=== PATIENT | female | born 1945 | race Caucasian/White ===

== ENCOUNTER 2022-03-26 06:35 | Inpatient (IN) ==
[2022-03-26] MEDS ORDERED: Ringers Solution, Lactated 1,000 ML IVC SCH (06:45)
[2022-03-26] MEDS ORDERED: CeFAZolin Syr 2,000MG/20 ML 2,000 MG/20 ML SYRINGE IVPB ONE (07:00)
[2022-03-26] MEDS ORDERED: *HR* Propofol 200 MG/20 ML VIAL IVP ONE (07:07)
[2022-03-26] MEDS ORDERED: *HR* FentaNYL (PF) 100 MCG/2 ML VIAL ONE (07:07)
[2022-03-26] MEDS ORDERED: Lidocaine HCL 4 ML Topical Solution (Laryng-O-Jet Kit Sterile Pak) TP ONE (07:08)
[2022-03-26] MEDS ORDERED: Ondansetron 4 MG/2 ML VIAL ONE (07:08)
[2022-03-26] MEDS ORDERED: Lidocaine -MPF 2% 2 ML VIAL ONE (07:08)
[2022-03-26] MEDS ORDERED: *HR* Rocuronium Bromide 50 MG/5 ML VIAL ONE (07:08)
[2022-03-26] MEDS ORDERED: *HR* OxyCODONE Immed Rel 5 MG TABLET PO PRN (07:35)
[2022-03-26] MEDS ORDERED: *HR* HYDROmorphone 2 MG TABLET PO PRN (07:35)
[2022-03-26] MEDS ORDERED: Famotidine 20 MG/2 ML VIAL IVP ONE (07:35)
[2022-03-26] MEDS ORDERED: Acetaminophen IV 1,000 MG/100 ML BAG IVPB ONE (07:35)
[2022-03-26] MEDS ORDERED: *HR* Labetalol 20 MG/4 ML SYRINGE IVP PRN (07:35)
[2022-03-26] MEDS ORDERED: Promethazine 6.25 MG in Water for inj. (sterile) 20 ML IVPB PRN (07:35)
[2022-03-26] MEDS ORDERED: Ondansetron 4 MG/2 ML VIAL IVP PRN ×2 (07:35→12:24)
[2022-03-26] MEDS ORDERED: *HR* HYDROmorphone (PF) 1 MG/ML SYRINGE IVP PRN (07:35)
[2022-03-26] MEDS ORDERED: Ketorolac 30 MG/ML VIAL IVP PRN (07:35)
[2022-03-26] MEDS ORDERED: *HR* Phenylephrine 10 MG/ML VIAL ONE (07:36)
[2022-03-26] MEDS ORDERED: *HR* Midazolam HCl 2 MG/2 ML VIAL ONE (08:10)
[2022-03-26] MEDS ORDERED: Sugammadex Sodium 200 MG/2 ML VIAL IV ONE (09:36)
[2022-03-26] MEDS ORDERED: *HR* HYDROMORPHONE 2 MG/ML VIAL ONE (09:52)
[2022-03-26] MEDS ORDERED: Albuterol 2.5 MG/3 ML NEBULIZER IH ONE (11:33)
[2022-03-26] MEDS ORDERED: Naloxone 0.4 MG/ML INJ IVP PRN (12:24)
[2022-03-26] MEDS: 0.9 % Sodium Chloride 1,000 ML IVC SCH (12:50)
[2022-03-26] MEDS: Ketorolac 30 MG/ML VIAL IVP SCH ×3 (12:52→23:13)
[2022-03-26] MEDS: Ipratropium/Albuterol Neb 3 ML IH SCH ×4 (13:29→23:34)
[2022-03-26] MEDS: *HR* HYDROcodone/Acet 5/325 mg TABLET PO PRN (14:46)
[2022-03-26] MEDS: *HR* Heparin 5,000 UNIT/ML VIAL SQ SCH ×2 (14:46→21:27)
[2022-03-26] MEDS: Gabapentin 300 MG CAPSULE PO SCH ×2 (14:47→21:27)
[2022-03-26] MEDS: *HR* Acetylcysteine 20% 600 MG/3 ML ORAL SYRINGE PO SCH ×2 (17:33→21:27)
[2022-03-26] MEDS: Famotidine 20 MG TABLET PO SCH (21:27)
[2022-03-26] MEDS: Sennosides/Docusate Sodium TABLET PO SCH (21:27)
[2022-03-26] MEDS: ALPRAZolam 0.5 MG TABLET PO SCH (21:27)
[2022-03-27] MEDS: 0.9 % Sodium Chloride 1,000 ML IVC SCH (00:20)
[2022-03-27 01:43] LABS: Hematocrit 32.7 % (35.3-44.9); Hemoglobin 10.6 g/dL (11.5-15.4); Mean Corpuscular HGB Conc 32.4 g/dL (31.6-35.5); Mean Corpuscular Hemoglobin 30.1 pg (28.0-33.3); Mean Corpuscular Volume 92.9 fL (83.0-100.0); Mean Platelet Volume 11.3 fL (9.4-12.4); Platelet Count 175 K/mcL (140-400); Red Blood Count 3.52 M/mcL (3.82-4.97); Red Cell Distribution Width 12.8 % (11.5-14.5); White Blood Count 6.8 K/mcL (4.3-11.1)
[2022-03-27 02:00] LABS: BUN/Creatinine Ratio 29 (6-26); Blood Urea Nitrogen 18 mg/dL (8-23); Calcium 8.8 mg/dL (8.6-10.3); Carbon Dioxide 24 mEq/L (23-29); Chloride 103 mEq/L (98-107); Glucose 125 mg/dL (70-105); Magnesium 1.8 mg/dL (1.6-2.6); Osmolality,Calculated 285 (280-300); Potassium 3.7 mEq/L (3.5-5.1); Sodium 136 mEq/L (136-145); eGFR For African Americans > 60 (> 60); eGFR For Non-African Americans > 60 (> 60)
[2022-03-27] MEDS: Ipratropium/Albuterol Neb 3 ML IH SCH ×6 (03:44→23:52)
[2022-03-27] MEDS: *HR* Heparin 5,000 UNIT/ML VIAL SQ SCH ×3 (05:26→21:10)
[2022-03-27] MEDS: Ketorolac 30 MG/ML VIAL IVP SCH ×3 (05:26→18:46)
[2022-03-27] MEDS: *HR* Acetylcysteine 20% 600 MG/3 ML ORAL SYRINGE PO SCH ×3 (09:23→21:31)
[2022-03-27] MEDS: Gabapentin 300 MG CAPSULE PO SCH ×3 (09:23→21:10)
[2022-03-27] MEDS: hydroCHLOROthiazide 25 MG TABLET PO SCH (09:23)
[2022-03-27] MEDS: Famotidine 20 MG TABLET PO SCH ×2 (09:23→21:10)
[2022-03-27] MEDS: Sennosides/Docusate Sodium TABLET PO SCH ×2 (09:23→21:10)
[2022-03-27] MEDS ORDERED: Furosemide 20 MG/2 ML VIAL IVP ONE (13:25)
[2022-03-27] MEDS: Budesonide/Formoterol 160/4.5 1 PUFF INH IH SCH ×2 (15:20→20:35)
[2022-03-27] MEDS: ALPRAZolam 0.5 MG TABLET PO SCH (21:10)
[2022-03-27] MEDS: *HR* HYDROcodone/Acet 5/325 mg TABLET PO PRN (21:10)
[2022-03-28] MEDS: Ketorolac 30 MG/ML VIAL IVP SCH ×5 (00:11→23:51)
[2022-03-28 03:31] LABS: BUN/Creatinine Ratio 31 (6-26); Blood Urea Nitrogen 21 mg/dL (8-23); Calcium 8.8 mg/dL (8.6-10.3); Carbon Dioxide 29 mEq/L (23-29); Chloride 102 mEq/L (98-107); Glucose 113 mg/dL (70-105); Osmolality,Calculated 290 (280-300); Potassium 3.5 mEq/L (3.5-5.1); Sodium 138 mEq/L (136-145); eGFR For African Americans > 60 (> 60); eGFR For Non-African Americans > 60 (> 60)
[2022-03-28] MEDS: Ipratropium/Albuterol Neb 3 ML IH SCH ×6 (04:12→23:32)
[2022-03-28] MEDS: *HR* Heparin 5,000 UNIT/ML VIAL SQ SCH ×3 (05:34→21:23)
[2022-03-28] MEDS: Budesonide/Formoterol 160/4.5 1 PUFF INH IH SCH ×3 (07:33→20:05)
[2022-03-28] MEDS: Famotidine 20 MG TABLET PO SCH ×2 (09:20→21:22)
[2022-03-28] MEDS: hydroCHLOROthiazide 25 MG TABLET PO SCH (09:20)
[2022-03-28] MEDS: *HR* Acetylcysteine 20% 600 MG/3 ML ORAL SYRINGE PO SCH ×3 (09:20→21:24)
[2022-03-28] MEDS: Gabapentin 300 MG CAPSULE PO SCH ×3 (09:20→23:51)
[2022-03-28] MEDS: Sennosides/Docusate Sodium TABLET PO SCH ×2 (09:21→21:22)
[2022-03-28] MEDS ORDERED: methylPREDNISolone 125 MG/2 ML VIAL IVP ONE (12:17)
[2022-03-28] MEDS ORDERED: Furosemide 40 MG/4 ML VIAL IVP ONE (12:17)
[2022-03-28] MEDS ORDERED: Perflutren Lipid Microsphere 1.3 ML in 0.9 % Sodium Chloride 8.7 ML IVP PRN (18:04)
[2022-03-28] MEDS: ALPRAZolam 0.5 MG TABLET PO SCH (21:22)
[2022-03-29 01:33] LABS: Hematocrit 33.4 % (35.3-44.9); Immature Granulocytes % 0.4 % (0-4); Lymphocytes # 0.5 K/mcL (0.6-4.6); Lymphocytes % 10.3 %; Mean Corpuscular HGB Conc 32.9 g/dL (31.6-35.5); Mean Corpuscular Hemoglobin 29.6 pg (28.0-33.3); Mean Platelet Volume 11.2 fL (9.4-12.4); Monocytes # 0.3 K/mcL (0.0-1.3); Monocytes % 4.8 %; Neutrophils # 4.4 K/mcL (1.6-8.9); Platelet Count 201 K/mcL (140-400); Red Blood Count 3.71 M/mcL (3.82-4.97); Red Cell Distribution Width 12.8 % (11.5-14.5); Segmented Neutrophils % 84.5 %; White Blood Count 5.2 K/mcL (4.3-11.1)
[2022-03-29 01:55] LABS: BUN/Creatinine Ratio 26 (6-26); Blood Urea Nitrogen 18 mg/dL (8-23); Calcium 9.3 mg/dL (8.6-10.3); Carbon Dioxide 30 mEq/L (23-29); Chloride 99 mEq/L (98-107); Glucose 154 mg/dL (70-105); Magnesium 2.1 mg/dL (1.6-2.6); Osmolality,Calculated 289 (280-300); Potassium 3.4 mEq/L (3.5-5.1); Sodium 137 mEq/L (136-145); eGFR For African Americans > 60 (> 60); eGFR For Non-African Americans > 60 (> 60)
[2022-03-29] MEDS: Ipratropium/Albuterol Neb 3 ML IH SCH ×6 (03:58→23:06)
[2022-03-29] MEDS: *HR* Heparin 5,000 UNIT/ML VIAL SQ SCH ×3 (05:40→22:39)
[2022-03-29] MEDS: Ketorolac 30 MG/ML VIAL IVP SCH ×3 (05:41→18:25)
[2022-03-29] MEDS: *HR* Acetylcysteine 20% 600 MG/3 ML ORAL SYRINGE PO SCH ×3 (07:43→22:39)
[2022-03-29] MEDS: Famotidine 20 MG TABLET PO SCH ×2 (07:44→22:39)
[2022-03-29] MEDS: Gabapentin 300 MG CAPSULE PO SCH ×3 (07:45→22:39)
[2022-03-29] MEDS: Sennosides/Docusate Sodium TABLET PO SCH ×2 (07:45→22:38)
[2022-03-29] MEDS: hydroCHLOROthiazide 25 MG TABLET PO SCH (07:45)
[2022-03-29] MEDS: Budesonide/Formoterol 160/4.5 1 PUFF INH IH SCH (08:46)
[2022-03-29] MEDS ORDERED: Furosemide 40 MG/4 ML VIAL IVP ONE (10:26)
[2022-03-29] MEDS: ALPRAZolam 0.5 MG TABLET PO SCH (22:39)
[2022-03-30] MEDS: Ketorolac 30 MG/ML VIAL IVP SCH ×2 (00:36→05:43)
[2022-03-30 04:00] LABS: Basophils % 0.4 %; Eosinophils # 0.4 K/mcL (0.0-0.6); Eosinophils % 6.1 %; Hematocrit 33.1 % (35.3-44.9); Hemoglobin 10.9 g/dL (11.5-15.4); Immature Granulocytes % 0.1 % (0-4); Lymphocytes # 1.6 K/mcL (0.6-4.6); Lymphocytes % 23.2 %; Mean Corpuscular HGB Conc 32.9 g/dL (31.6-35.5); Mean Corpuscular Volume 91.2 fL (83.0-100.0); Mean Platelet Volume 11.4 fL (9.4-12.4); Monocytes # 0.6 K/mcL (0.0-1.3); Neutrophils # 4.2 K/mcL (1.6-8.9); Platelet Count 244 K/mcL (140-400); Red Blood Count 3.63 M/mcL (3.82-4.97); Red Cell Distribution Width 13.1 % (11.5-14.5); Segmented Neutrophils % 61.2 %; White Blood Count 6.9 K/mcL (4.3-11.1)
[2022-03-30] MEDS: Ipratropium/Albuterol Neb 3 ML IH SCH ×5 (04:09→20:16)
[2022-03-30 04:26] LABS: BUN/Creatinine Ratio 38 (6-26); Blood Urea Nitrogen 30 mg/dL (8-23); Calcium 9.5 mg/dL (8.6-10.3); Carbon Dioxide 32 mEq/L (23-29); Chloride 100 mEq/L (98-107); Glucose 103 mg/dL (70-105); Magnesium 2.2 mg/dL (1.6-2.6); Osmolality,Calculated 292 (280-300); Potassium 3.9 mEq/L (3.5-5.1); Sodium 138 mEq/L (136-145); eGFR For African Americans > 60 (> 60); eGFR For Non-African Americans > 60 (> 60)
[2022-03-30] MEDS: *HR* Heparin 5,000 UNIT/ML VIAL SQ SCH ×3 (05:43→22:54)
[2022-03-30] MEDS: hydroCHLOROthiazide 25 MG TABLET PO SCH (08:47)
[2022-03-30] MEDS: Gabapentin 300 MG CAPSULE PO SCH ×3 (08:48→20:25)
[2022-03-30] MEDS: Sennosides/Docusate Sodium TABLET PO SCH ×2 (08:48→20:25)
[2022-03-30] MEDS: Famotidine 20 MG TABLET PO SCH ×2 (08:48→20:25)
[2022-03-30] MEDS: *HR* Acetylcysteine 20% 600 MG/3 ML ORAL SYRINGE PO SCH ×3 (09:01→20:25)
[2022-03-30] MEDS: ALPRAZolam 0.5 MG TABLET PO SCH (20:25)
[2022-03-30] MEDS: Clindamycin 600 MG/50 ML 600 MG/50 ML IV.SOLN IVPB SCH (20:55)
[2022-03-31] MEDS: Ipratropium/Albuterol Neb 3 ML IH SCH ×7 (00:03→22:50)
[2022-03-31] MEDS: Clindamycin 600 MG/50 ML 600 MG/50 ML IV.SOLN IVPB SCH ×4 (02:55→21:39)
[2022-03-31 04:40] LABS: Hematocrit 34.4 % (35.3-44.9); Hemoglobin 11.1 g/dL (11.5-15.4); Mean Corpuscular HGB Conc 32.3 g/dL (31.6-35.5); Mean Corpuscular Hemoglobin 29.4 pg (28.0-33.3); Mean Platelet Volume 10.9 fL (9.4-12.4); Platelet Count 252 K/mcL (140-400); Red Blood Count 3.78 M/mcL (3.82-4.97); White Blood Count 7.1 K/mcL (4.3-11.1)
[2022-03-31 04:56] LABS: BUN/Creatinine Ratio 31 (6-26); Blood Urea Nitrogen 19 mg/dL (8-23); Calcium 9.3 mg/dL (8.6-10.3); Carbon Dioxide 30 mEq/L (23-29); Chloride 98 mEq/L (98-107); Glucose 108 mg/dL (70-105); Osmolality,Calculated 283 (280-300); Potassium 3.7 mEq/L (3.5-5.1); Sodium 135 mEq/L (136-145); eGFR For African Americans > 60 (> 60); eGFR For Non-African Americans > 60 (> 60)
[2022-03-31] MEDS: *HR* Heparin 5,000 UNIT/ML VIAL SQ SCH ×3 (05:32→21:39)
[2022-03-31] MEDS: Sennosides/Docusate Sodium TABLET PO SCH ×2 (08:42→21:36)
[2022-03-31] MEDS: *HR* Acetylcysteine 20% 600 MG/3 ML ORAL SYRINGE PO SCH ×3 (08:44→21:39)
[2022-03-31] MEDS: Famotidine 20 MG TABLET PO SCH ×2 (09:24→21:39)
[2022-03-31] MEDS: Gabapentin 300 MG CAPSULE PO SCH ×3 (10:23→21:39)
[2022-03-31] MEDS: hydroCHLOROthiazide 25 MG TABLET PO SCH (10:27)
[2022-03-31] MEDS ORDERED: Furosemide 40 MG/4 ML VIAL IVP SCH (11:45)
[2022-03-31] MEDS ORDERED: Clindamycin 600 MG/50 ML 600 MG/50 ML IV.SOLN IVPB SCH (21:00)
[2022-03-31] MEDS: ALPRAZolam 0.5 MG TABLET PO SCH (21:39)
[2022-04-01] MEDS: Clindamycin 600 MG/50 ML 600 MG/50 ML IV.SOLN IVPB SCH ×4 (03:10→22:23)
[2022-04-01 03:37] LABS: Hematocrit 34.9 % (35.3-44.9); Hemoglobin 11.4 g/dL (11.5-15.4); Mean Corpuscular HGB Conc 32.7 g/dL (31.6-35.5); Mean Corpuscular Volume 91.8 fL (83.0-100.0); Mean Platelet Volume 10.8 fL (9.4-12.4); Platelet Count 253 K/mcL (140-400); Red Cell Distribution Width 12.7 % (11.5-14.5); White Blood Count 5.9 K/mcL (4.3-11.1)
[2022-04-01] MEDS: Ipratropium/Albuterol Neb 3 ML IH SCH ×6 (03:58→23:05)
[2022-04-01 04:01] LABS: BUN/Creatinine Ratio 45 (6-26); Blood Urea Nitrogen 25 mg/dL (8-23); Calcium 9.5 mg/dL (8.6-10.3); Carbon Dioxide 29 mEq/L (23-29); Chloride 98 mEq/L (98-107); Glucose 97 mg/dL (70-105); Osmolality,Calculated 288 (280-300); Potassium 3.4 mEq/L (3.5-5.1); Sodium 137 mEq/L (136-145); eGFR For African Americans > 60 (> 60); eGFR For Non-African Americans > 60 (> 60)
[2022-04-01] MEDS: *HR* Heparin 5,000 UNIT/ML VIAL SQ SCH ×3 (05:39→22:24)
[2022-04-01] MEDS: Sennosides/Docusate Sodium TABLET PO SCH ×2 (09:06→22:23)
[2022-04-01] MEDS: Furosemide 20 MG/2 ML VIAL IVP SCH (09:07)
[2022-04-01] MEDS: Gabapentin 300 MG CAPSULE PO SCH ×3 (09:07→22:24)
[2022-04-01] MEDS: Famotidine 20 MG TABLET PO SCH ×2 (09:07→22:23)
[2022-04-01] MEDS: ALPRAZolam 0.5 MG TABLET PO SCH (22:23)
[2022-04-02] MEDS: Clindamycin 600 MG/50 ML 600 MG/50 ML IV.SOLN IVPB SCH (03:26)
[2022-04-02 03:56] LABS: Hematocrit 35.5 % (35.3-44.9); Hemoglobin 11.5 g/dL (11.5-15.4); Mean Corpuscular HGB Conc 32.4 g/dL (31.6-35.5); Mean Corpuscular Hemoglobin 30.2 pg (28.0-33.3); Mean Corpuscular Volume 93.2 fL (83.0-100.0); Mean Platelet Volume 11.4 fL (9.4-12.4); Platelet Count 282 K/mcL (140-400); Red Blood Count 3.81 M/mcL (3.82-4.97); Red Cell Distribution Width 12.6 % (11.5-14.5); White Blood Count 7.6 K/mcL (4.3-11.1)
[2022-04-02] MEDS: Ipratropium/Albuterol Neb 3 ML IH SCH ×6 (04:00→23:18)
[2022-04-02 04:13] LABS: BUN/Creatinine Ratio 49 (6-26); Blood Urea Nitrogen 30 mg/dL (8-23); Calcium 9.5 mg/dL (8.6-10.3); Carbon Dioxide 29 mEq/L (23-29); Chloride 100 mEq/L (98-107); Glucose 100 mg/dL (70-105); Osmolality,Calculated 288 (280-300); Potassium 4.2 mEq/L (3.5-5.1); Sodium 136 mEq/L (136-145); eGFR For African Americans > 60 (> 60); eGFR For Non-African Americans > 60 (> 60)
[2022-04-02] MEDS: *HR* Heparin 5,000 UNIT/ML VIAL SQ SCH ×3 (08:40→21:19)
[2022-04-02] MEDS: Gabapentin 300 MG CAPSULE PO SCH ×3 (08:41→21:10)
[2022-04-02] MEDS: Famotidine 20 MG TABLET PO SCH ×2 (08:41→21:10)
[2022-04-02] MEDS: Furosemide 20 MG/2 ML VIAL IVP SCH (08:41)
[2022-04-02] MEDS: Sennosides/Docusate Sodium TABLET PO SCH ×2 (08:42→21:10)
[2022-04-02] MEDS: ALPRAZolam 0.5 MG TABLET PO SCH (21:10)
[2022-04-03 02:05] LABS: Hematocrit 37.3 % (35.3-44.9); Hemoglobin 12.3 g/dL (11.5-15.4); Mean Corpuscular Hemoglobin 30.4 pg (28.0-33.3); Mean Corpuscular Volume 92.3 fL (83.0-100.0); Mean Platelet Volume 10.9 fL (9.4-12.4); Platelet Count 335 K/mcL (140-400); Red Blood Count 4.04 M/mcL (3.82-4.97); Red Cell Distribution Width 12.7 % (11.5-14.5); White Blood Count 7.8 K/mcL (4.3-11.1)
[2022-04-03 02:27] LABS: BUN/Creatinine Ratio 51 (6-26); Blood Urea Nitrogen 27 mg/dL (8-23); Calcium 9.6 mg/dL (8.6-10.3); Carbon Dioxide 27 mEq/L (23-29); Chloride 100 mEq/L (98-107); Glucose 109 mg/dL (70-105); Osmolality,Calculated 286 (280-300); Potassium 3.8 mEq/L (3.5-5.1); Sodium 135 mEq/L (136-145); eGFR For African Americans > 60 (> 60); eGFR For Non-African Americans > 60 (> 60)
[2022-04-03] MEDS: Ipratropium/Albuterol Neb 3 ML IH SCH ×5 (04:02→20:13)
[2022-04-03] MEDS: *HR* Heparin 5,000 UNIT/ML VIAL SQ SCH ×3 (06:43→20:55)
[2022-04-03] MEDS: Sennosides/Docusate Sodium TABLET PO SCH ×2 (08:37→20:55)
[2022-04-03] MEDS: Furosemide 20 MG/2 ML VIAL IVP SCH (08:38)
[2022-04-03] MEDS: Gabapentin 300 MG CAPSULE PO SCH ×3 (08:38→20:55)
[2022-04-03] MEDS: Famotidine 20 MG TABLET PO SCH ×2 (08:38→20:55)
[2022-04-03] MEDS: hydroCHLOROthiazide 25 MG TABLET PO SCH (08:38)
[2022-04-03] MEDS ORDERED: Potassium Chloride Elixir 20 MEQ/15 ML UDC PO ONE (09:43)
[2022-04-03] MEDS ORDERED: Menthol 1 EACH LOZENGE PO PRN (17:09)
[2022-04-03] MEDS: ALPRAZolam 0.5 MG TABLET PO SCH (20:55)
[2022-04-04] MEDS: Ipratropium/Albuterol Neb 3 ML IH SCH ×6 (00:03→20:09)
[2022-04-04] MEDS: *HR* Heparin 5,000 UNIT/ML VIAL SQ SCH ×3 (06:11→21:06)
[2022-04-04] MEDS: Sennosides/Docusate Sodium TABLET PO SCH ×2 (08:38→21:07)
[2022-04-04] MEDS: Gabapentin 300 MG CAPSULE PO SCH ×3 (08:38→21:07)
[2022-04-04] MEDS: hydroCHLOROthiazide 25 MG TABLET PO SCH (08:38)
[2022-04-04] MEDS: Famotidine 20 MG TABLET PO SCH ×2 (08:38→21:07)
[2022-04-04] MEDS: *HR* HYDROcodone/Acet 5/325 mg TABLET PO PRN ×2 (08:41→21:06)
[2022-04-04] MEDS: ALPRAZolam 0.5 MG TABLET PO SCH (21:06)
[2022-04-05] MEDS: Ipratropium/Albuterol Neb 3 ML IH SCH ×7 (00:03→22:59)
[2022-04-05] MEDS: *HR* Heparin 5,000 UNIT/ML VIAL SQ SCH ×3 (05:45→21:30)
[2022-04-05] MEDS: Famotidine 20 MG TABLET PO SCH ×2 (08:05→21:30)
[2022-04-05] MEDS: hydroCHLOROthiazide 25 MG TABLET PO SCH (08:06)
[2022-04-05] MEDS: Sennosides/Docusate Sodium TABLET PO SCH ×2 (08:06→21:30)
[2022-04-05] MEDS: *HR* HYDROcodone/Acet 5/325 mg TABLET PO PRN (08:06)
[2022-04-05] MEDS: Gabapentin 300 MG CAPSULE PO SCH ×3 (08:06→21:30)
[2022-04-05] MEDS: Magic Mouthwash 10 ML UD Cup PO SCH ×2 (09:11→15:46)
[2022-04-05] MEDS: Hydrocortisone Sodium Succ 100 MG/2 ML VIAL IVP SCH (13:20)
[2022-04-05] MEDS: Nystatin SUSP 5 ML UD.LIQ PO SCH ×2 (13:27→21:29)
[2022-04-05] MEDS: ALPRAZolam 0.5 MG TABLET PO SCH (21:29)
[2022-04-06] MEDS: Ipratropium/Albuterol Neb 3 ML IH SCH ×6 (04:09→23:07)
[2022-04-06] MEDS: *HR* Heparin 5,000 UNIT/ML VIAL SQ SCH ×3 (04:57→20:15)
[2022-04-06] MEDS: Hydrocortisone Sodium Succ 100 MG/2 ML VIAL IVP SCH (07:54)
[2022-04-06] MEDS: Magic Mouthwash 10 ML UD Cup PO SCH ×3 (07:54→16:46)
[2022-04-06] MEDS: hydroCHLOROthiazide 25 MG TABLET PO SCH (07:54)
[2022-04-06] MEDS: Nystatin SUSP 5 ML UD.LIQ PO SCH ×4 (07:54→20:14)
[2022-04-06] MEDS: Famotidine 20 MG TABLET PO SCH ×2 (07:54→20:14)
[2022-04-06] MEDS: Sennosides/Docusate Sodium TABLET PO SCH ×2 (07:55→20:14)
[2022-04-06] MEDS: Gabapentin 300 MG CAPSULE PO SCH ×3 (07:55→20:14)
[2022-04-06] MEDS: ALPRAZolam 0.5 MG TABLET PO SCH (20:14)
[2022-04-07] MEDS: Ipratropium/Albuterol Neb 3 ML IH SCH ×6 (03:53→23:06)
[2022-04-07] MEDS: *HR* Heparin 5,000 UNIT/ML VIAL SQ SCH ×3 (07:13→20:26)
[2022-04-07] MEDS: Famotidine 20 MG TABLET PO SCH ×2 (07:54→20:25)
[2022-04-07] MEDS: Gabapentin 300 MG CAPSULE PO SCH ×3 (07:54→20:25)
[2022-04-07] MEDS: Magic Mouthwash 10 ML UD Cup PO SCH ×3 (07:54→16:15)
[2022-04-07] MEDS: hydroCHLOROthiazide 25 MG TABLET PO SCH (07:54)
[2022-04-07] MEDS: Sennosides/Docusate Sodium TABLET PO SCH ×2 (07:54→20:26)
[2022-04-07] MEDS: Nystatin SUSP 5 ML UD.LIQ PO SCH ×4 (07:54→20:25)
[2022-04-07] MEDS: ALPRAZolam 0.5 MG TABLET PO SCH (20:25)
[2022-04-08] MEDS: Ipratropium/Albuterol Neb 3 ML IH SCH ×6 (03:39→23:15)
[2022-04-08] MEDS: *HR* Heparin 5,000 UNIT/ML VIAL SQ SCH ×3 (05:20→20:52)
[2022-04-08 06:59] LABS: Hematocrit 36.7 % (35.3-44.9); Mean Corpuscular HGB Conc 32.7 g/dL (31.6-35.5); Mean Corpuscular Hemoglobin 29.8 pg (28.0-33.3); Mean Corpuscular Volume 91.1 fL (83.0-100.0); Platelet Count 372 K/mcL (140-400); Red Blood Count 4.03 M/mcL (3.82-4.97); Red Cell Distribution Width 12.2 % (11.5-14.5); White Blood Count 8.6 K/mcL (4.3-11.1)
[2022-04-08 07:23] LABS: BUN/Creatinine Ratio 39 (6-26); Blood Urea Nitrogen 23 mg/dL (8-23); Calcium 9.7 mg/dL (8.6-10.3); Carbon Dioxide 30 mEq/L (23-29); Chloride 100 mEq/L (98-107); Glucose 110 mg/dL (70-105); Osmolality,Calculated 288 (280-300); Potassium 3.3 mEq/L (3.5-5.1); Sodium 137 mEq/L (136-145); eGFR For African Americans > 60 (> 60); eGFR For Non-African Americans > 60 (> 60)
[2022-04-08] MEDS: Nystatin SUSP 5 ML UD.LIQ PO SCH ×4 (08:10→20:52)
[2022-04-08] MEDS: Magic Mouthwash 10 ML UD Cup PO SCH ×3 (08:10→16:15)
[2022-04-08] MEDS: Gabapentin 300 MG CAPSULE PO SCH ×3 (08:11→20:52)
[2022-04-08] MEDS: Sennosides/Docusate Sodium TABLET PO SCH ×2 (08:11→20:51)
[2022-04-08] MEDS: Famotidine 20 MG TABLET PO SCH ×2 (08:11→20:51)
[2022-04-08] MEDS: hydroCHLOROthiazide 25 MG TABLET PO SCH (08:11)
[2022-04-08] MEDS ORDERED: Gadolinium Contrast Agent (WT Based) IV PRN (13:42)
[2022-04-08] MEDS ORDERED: Nitroglycerin 1 INCH/GM PACKET TP ONE (17:24)
[2022-04-08] MEDS ORDERED: Nitroglycerin 1 INCH/GM PACKET ONE (17:25)
[2022-04-08] MEDS: ALPRAZolam 0.5 MG TABLET PO SCH (20:51)
[2022-04-09] MEDS: Ipratropium/Albuterol Neb 3 ML IH SCH ×4 (03:37→16:24)
[2022-04-09] MEDS: *HR* Heparin 5,000 UNIT/ML VIAL SQ SCH ×2 (05:10→15:37)
[2022-04-09] MEDS: Magic Mouthwash 10 ML UD Cup PO SCH ×2 (08:19→12:01)
[2022-04-09] MEDS: Nystatin SUSP 5 ML UD.LIQ PO SCH ×2 (08:23→12:01)
[2022-04-09] MEDS: Sennosides/Docusate Sodium TABLET PO SCH (08:23)
[2022-04-09] MEDS: hydroCHLOROthiazide 25 MG TABLET PO SCH (08:24)
[2022-04-09] MEDS: Gabapentin 300 MG CAPSULE PO SCH ×2 (08:24→16:49)
[2022-04-09] MEDS: Famotidine 20 MG TABLET PO SCH (08:24)
[2022-04-09 15:47] LABS: Influenza A PCR Negative (Negative); Influenza B PCR Negative (Negative); Resp. Syncytial Virus PCR Negative (Negative)
[2022-04-09 16:26] VITALS: BP 128/60; PULSE 78; TEMP 97.5; O2SAT 91
[2022-04-09 16:30] LABS: SARS-CoV-2 by PCR (In House) Negative (Negative)
== END 2022-04-09 17:14 | DRG 163 ==
LOC: SAMDAY 06:35 → 2NNU 12:19
PROVIDERS: ADMIT Thoracic Surgery (Cardiothoracic Vascular Surgery); ATTEND Thoracic Surgery (Cardiothoracic Vascular Surgery)

== ENCOUNTER 2022-04-12 20:00 | Observation (INO) ==
[2022-04-12 20:36] LABS: Basophils # 0.1 K/mcL (0.0-0.2); Basophils % 0.8 %; Eosinophils # 0.4 K/mcL (0.0-0.6); Hematocrit 41.4 % (35.3-44.9); Immature Granulocytes % 0.5 % (0-4); Lymphocytes # 1.7 K/mcL (0.6-4.6); Lymphocytes % 19.4 %; Mean Corpuscular HGB Conc 33.6 g/dL (31.6-35.5); Mean Corpuscular Hemoglobin 29.9 pg (28.0-33.3); Mean Platelet Volume 10.9 fL (9.4-12.4); Monocytes # 1.1 K/mcL (0.0-1.3); Monocytes % 12.8 %; Neutrophils # 5.5 K/mcL (1.6-8.9); Platelet Count 437 K/mcL (140-400); Red Blood Count 4.65 M/mcL (3.82-4.97); Red Cell Distribution Width 12.6 % (11.5-14.5); Segmented Neutrophils % 62.5 %; White Blood Count 8.8 K/mcL (4.3-11.1)
[2022-04-12 20:37] LABS: Hemoglobin 13.9 g/dL (11.5-15.4)
[2022-04-12 20:58] LABS: BUN/Creatinine Ratio 25 (6-26); Blood Urea Nitrogen 16 mg/dL (8-23); Calcium 9.9 mg/dL (8.6-10.3); Carbon Dioxide 25 mEq/L (23-29); Chloride 97 mEq/L (98-107); Glucose 130 mg/dL (70-105); Osmolality,Calculated 279 (280-300); Potassium 3.5 mEq/L (3.5-5.1); Sodium 133 mEq/L (136-145); eGFR For African Americans > 60 (> 60); eGFR For Non-African Americans > 60 (> 60)
[2022-04-12 20:59] LABS: Troponin I < 0.03 ng/mL (< 0.04)
[2022-04-12] MEDS ORDERED: Iopamidol - 370 500 ML MLS IVP ONE (21:02)
[2022-04-12] MEDS ORDERED: Famotidine 20 MG/2 ML VIAL IVP ONE (21:27)
[2022-04-12] MEDS ORDERED: GI Cocktail 40 ML EACH PO ONE (21:27)
[2022-04-12] MEDS ORDERED: *HR* HYDROcodone/Acet 5/325 mg TABLET PO PRN (22:22)
[2022-04-12] MEDS ORDERED: Melatonin 3 MG TABLET PO PRN (22:22)
[2022-04-12] MEDS ORDERED: Naloxone 0.4 MG/ML INJ IVP PRN (22:22)
[2022-04-12] MEDS ORDERED: Acetaminophen 325 MG TABLET PO PRN (22:22)
[2022-04-12] MEDS ORDERED: Ondansetron ODT 4 MG TAB.RAPDIS SL PRN (22:22)
[2022-04-13] MEDS: ALPRAZolam 0.5 MG TABLET PO SCH ×3 (01:09→19:51)
[2022-04-13 03:50] LABS: Basophils # 0.1 K/mcL (0.0-0.2); Basophils % 1.4 %; Eosinophils # 0.4 K/mcL (0.0-0.6); Eosinophils % 5.5 %; Hematocrit 39.6 % (35.3-44.9); Immature Granulocytes % 0.5 % (0-4); Lymphocytes # 1.8 K/mcL (0.6-4.6); Mean Corpuscular HGB Conc 32.8 g/dL (31.6-35.5); Mean Corpuscular Hemoglobin 29.7 pg (28.0-33.3); Mean Corpuscular Volume 90.4 fL (83.0-100.0); Mean Platelet Volume 11.1 fL (9.4-12.4); Monocytes # 0.9 K/mcL (0.0-1.3); Monocytes % 12.4 %; Neutrophils # 4.1 K/mcL (1.6-8.9); Platelet Count 371 K/mcL (140-400); Red Blood Count 4.38 M/mcL (3.82-4.97); Red Cell Distribution Width 12.5 % (11.5-14.5); Segmented Neutrophils % 55.2 %; White Blood Count 7.3 K/mcL (4.3-11.1)
[2022-04-13 04:11] LABS: Alanine Aminotransferase 16 Units/L (7-52); Albumin 3.4 g/dL (3.5-5.7); Alkaline Phosphatase 70 Units/L (34-104); Aspartate Amino Transferase 14 Units/L (13-39); BUN/Creatinine Ratio 28 (6-26); Bilirubin,Total 0.6 mg/dL (0.3-1.0); Blood Urea Nitrogen 15 mg/dL (8-23); Calcium 9.5 mg/dL (8.6-10.3); Carbon Dioxide 26 mEq/L (23-29); Chloride 99 mEq/L (98-107); Cholesterol 163 mg/dL (< 200); Globulin 3.3 g/dL (2.4-3.5); Glucose 97 mg/dL (70-105); Osmolality,Calculated 281 (280-300); Phosphorous 3.5 mg/dL (2.7-4.5); Potassium 3.2 mEq/L (3.5-5.1); Sodium 135 mEq/L (136-145); Total Protein 6.7 g/dL (6.4-8.9); Triglycerides 120 mg/dL (< 150); eGFR For African Americans > 60 (> 60); eGFR For Non-African Americans > 60 (> 60)
[2022-04-13 04:12] LABS: Chol/HDL Ratio 4.5 (0-4.9); HDL Cholesterol 36 mg/dL (40-59); LDL Cholesterol,Calculated 103 mg/dL (< 100)
[2022-04-13] MEDS ORDERED: BuPROPion XL (24 HR) 150 MG TABLET PO SCH (13:30)
[2022-04-13] MEDS: *HR* OxyCODONE Immed Rel 5 MG TABLET PO PRN (13:47)
[2022-04-13] MEDS: Ipratropium/Albuterol Neb 3 ML IH SCH ×3 (15:36→23:50)
[2022-04-13] MEDS ORDERED: GI Cocktail 40 ML EACH PO PRN (16:14)
[2022-04-13] MEDS: Azithromycin 250 MG TABLET PO SCH (17:09)
[2022-04-13] MEDS: Pantoprazole 40 MG VIAL IVP SCH (17:41)
[2022-04-13] MEDS: MethylPREDNISolone 40 MG/ML VIAL IVP SCH (17:42)
[2022-04-14] MEDS: Ipratropium/Albuterol Neb 3 ML IH SCH (03:49)
[2022-04-14] MEDS: Pantoprazole 40 MG VIAL IVP SCH (05:51)
[2022-04-14] MEDS: MethylPREDNISolone 40 MG/ML VIAL IVP SCH (05:51)
[2022-04-14] MEDS ORDERED: Regadenoson 0.4 MG/5 ML SYRINGE IVP ONE (06:13)
[2022-04-14] MEDS ORDERED: Ipratropium/Albuterol Neb 3 ML IH PRN (08:00)
[2022-04-14] MEDS: ALPRAZolam 0.5 MG TABLET PO SCH (08:51)
[2022-04-14] MEDS: Azithromycin 250 MG TABLET PO SCH (08:51)
[2022-04-14] MEDS: *HR* OxyCODONE Immed Rel 5 MG TABLET PO PRN (08:53)
[2022-04-14] MEDS ORDERED: hydroCHLOROthiazide 25 MG TABLET PO SCH (09:00)
[2022-04-14] MEDS ORDERED: Famotidine 20 MG TABLET PO SCH (09:00)
[2022-04-14 09:29] LABS: BUN/Creatinine Ratio 27 (6-26); Blood Urea Nitrogen 17 mg/dL (8-23); Calcium 9.8 mg/dL (8.6-10.3); Carbon Dioxide 29 mEq/L (23-29); Chloride 99 mEq/L (98-107); Glucose 139 mg/dL (70-105); Osmolality,Calculated 288 (280-300); Potassium 3.6 mEq/L (3.5-5.1); Sodium 137 mEq/L (136-145); eGFR For African Americans > 60 (> 60); eGFR For Non-African Americans > 60 (> 60)
[2022-04-14 11:40] VITALS: BP 116/78; PULSE 85; TEMP 97.4; O2SAT 95
[2022-04-14] MEDS ORDERED: Sucralfate 1 GM TABLET PO SCH (16:30)
== END 2022-04-14 16:33 | disposition home or self-care (01) ==
LOC: 3BNU 20:00 → EMEROOARM 20:00 → SUATTDRO 22:19 → 3BNU 23:22
PROVIDERS: ADMIT Internal Medicine; ATTEND Registered Nurse

== ENCOUNTER 2022-04-29 14:21 | Observation (INO) ==
[2022-04-29 15:17] LABS: Eosinophils # 0.2 K/mcL (0.0-0.6); Eosinophils % 4.7 %; Hematocrit 33.6 % (35.3-44.9); Hemoglobin 11.2 g/dL (11.5-15.4); Immature Granulocytes % 0.2 % (0-4); Lymphocytes # 1.3 K/mcL (0.6-4.6); Lymphocytes % 31.9 %; Mean Corpuscular HGB Conc 33.3 g/dL (31.6-35.5); Mean Corpuscular Hemoglobin 29.9 pg (28.0-33.3); Mean Corpuscular Volume 89.6 fL (83.0-100.0); Mean Platelet Volume 11.3 fL (9.4-12.4); Monocytes # 0.5 K/mcL (0.0-1.3); Platelet Count 159 K/mcL (140-400); Red Blood Count 3.75 M/mcL (3.82-4.97); Segmented Neutrophils % 49.2 %; White Blood Count 4.1 K/mcL (4.3-11.1)
[2022-04-29 15:42] LABS: BUN/Creatinine Ratio 19 (6-26); Blood Urea Nitrogen 10 mg/dL (8-23); Calcium 9.4 mg/dL (8.6-10.3); Carbon Dioxide 33 mEq/L (23-29); Chloride 102 mEq/L (98-107); Glucose 97 mg/dL (70-105); Osmolality,Calculated 287 (280-300); Potassium 3.3 mEq/L (3.5-5.1); Sodium 139 mEq/L (136-145); eGFR For African Americans > 60 (> 60); eGFR For Non-African Americans > 60 (> 60)
[2022-04-29 17:24] LABS: Troponin I < 0.03 ng/mL (< 0.04)
[2022-04-29] MEDS ORDERED: Iopamidol - 370 500 ML MLS IVP ONE (18:09)
[2022-04-29 19:14] LABS: Influenza A PCR Negative (Negative); Influenza B PCR Negative (Negative); Resp. Syncytial Virus PCR Negative (Negative)
[2022-04-29 19:19] LABS: SARS-CoV-2 by PCR (In House) Negative (Negative)
[2022-04-29] MEDS ORDERED: Cefepime HCl 2,000 MG in 0.9 % Sodium Chloride 10 ML IVP ONE (20:16)
[2022-04-29] MEDS ORDERED: Naloxone 0.4 MG/ML INJ IVP PRN (20:32)
[2022-04-29] MEDS ORDERED: Melatonin 3 MG TABLET PO PRN (20:32)
[2022-04-29] MEDS ORDERED: Acetaminophen 325 MG TABLET PO PRN (20:32)
[2022-04-29] MEDS ORDERED: Ondansetron 4 MG/2 ML VIAL IVP PRN (20:32)
[2022-04-29] MEDS ORDERED: Ipratropium/Albuterol Neb 3 ML IH PRN (20:37)
[2022-04-29 20:41] LABS: Bacteria,Urine Few per hpf (None-Few); Bilirubin,Urine Negative (Negative); Blood,Urine Negative (Negative); Clarity,Urine Turbid (Clear); Color,Urine Light-Yellow (Yellow); Glucose,Urine (UA) Normal (Normal); Ketones,Urine Negative (Negative); Leukocyte Esterase,Urine Negative (Negative); Mucus,Urine Few per lpf (None-Few); Nitrite,Urine Negative (Negative); PH,Urine 7.5 pH Units (5.0-8.0); Protein,Urine Negative (Neg-Trace); RBC,Urine 0-3 per hpf (0-3); Squamous Epithelial Cell,Urine Moderate per hpf (None-Few); Urobilinogen,Urine Normal (Normal)
[2022-04-29] MEDS: *HR* Heparin 5,000 UNIT/ML VIAL SQ SCH (22:40)
[2022-04-29] MEDS ORDERED: Potassium Chloride Elixir 20 MEQ/15 ML UDC PO ONE ×2 (23:14→23:45)
[2022-04-30] MEDS: ALPRAZolam 0.5 MG TABLET PO SCH ×3 (00:18→20:27)
[2022-04-30 02:55] LABS: Hematocrit 32.6 % (35.3-44.9); Hemoglobin 10.9 g/dL (11.5-15.4); Mean Corpuscular HGB Conc 33.4 g/dL (31.6-35.5); Mean Corpuscular Hemoglobin 30.2 pg (28.0-33.3); Mean Corpuscular Volume 90.3 fL (83.0-100.0); Mean Platelet Volume 11.8 fL (9.4-12.4); Platelet Count 150 K/mcL (140-400); Red Blood Count 3.61 M/mcL (3.82-4.97); Red Cell Distribution Width 12.9 % (11.5-14.5); White Blood Count 4.2 K/mcL (4.3-11.1)
[2022-04-30 03:16] LABS: BUN/Creatinine Ratio 17 (6-26); Blood Urea Nitrogen 8 mg/dL (8-23); Calcium 9.2 mg/dL (8.6-10.3); Carbon Dioxide 29 mEq/L (23-29); Chloride 105 mEq/L (98-107); Glucose 116 mg/dL (70-105); Osmolality,Calculated 287 (280-300); Potassium 3.6 mEq/L (3.5-5.1); Sodium 139 mEq/L (136-145); eGFR For African Americans > 60 (> 60); eGFR For Non-African Americans > 60 (> 60)
[2022-04-30] MEDS: *HR* Heparin 5,000 UNIT/ML VIAL SQ SCH ×3 (06:27→20:27)
[2022-04-30] MEDS: predniSONE 20 MG TABLET PO SCH (13:42)
[2022-05-01] MEDS: *HR* Heparin 5,000 UNIT/ML VIAL SQ SCH (06:06)
[2022-05-01 07:14] VITALS: BP 133/79; PULSE 68; TEMP 97.8; O2SAT 98
[2022-05-01] MEDS: ALPRAZolam 0.5 MG TABLET PO SCH (08:26)
[2022-05-01] MEDS: predniSONE 20 MG TABLET PO SCH (08:26)
== END 2022-05-01 11:20 | disposition home or self-care (01) ==
LOC: 3BNU 14:21 → EMEROOARM 14:21 → 3BNU 20:52
PROVIDERS: ADMIT Internal Medicine; ATTEND Internal Medicine

== ENCOUNTER 2022-05-08 14:53 | Observation (INO) ==
[2022-05-08] MEDS ORDERED: Iopamidol - 370 500 ML MLS IVP ONE (15:21)
[2022-05-08 15:42] LABS: Basophils % 0.4 %; Eosinophils # 0.2 K/mcL (0.0-0.6); Eosinophils % 2.5 %; Hematocrit 41.3 % (35.3-44.9); Hemoglobin 13.6 g/dL (11.5-15.4); Immature Granulocytes % 0.3 % (0-4); Mean Corpuscular HGB Conc 32.9 g/dL (31.6-35.5); Mean Corpuscular Hemoglobin 29.8 pg (28.0-33.3); Mean Corpuscular Volume 90.6 fL (83.0-100.0); Mean Platelet Volume 10.8 fL (9.4-12.4); Monocytes % 10.4 %; Neutrophils # 5.9 K/mcL (1.6-8.9); Platelet Count 238 K/mcL (140-400); Red Blood Count 4.56 M/mcL (3.82-4.97); Red Cell Distribution Width 13.6 % (11.5-14.5); Segmented Neutrophils % 64.4 %; White Blood Count 9.2 K/mcL (4.3-11.1)
[2022-05-08 15:47] LABS: VBG HCO3 29 mEq/L (21-27); VBG PCO2 55 mmHg (41-51); VBG PH 7.34 pH Units (7.32-7.42); VBG PO2 37 mmHg (25-50)
[2022-05-08] MEDS ORDERED: Albuterol 2.5 MG/3 ML NEBULIZER IH ONE (15:53)
[2022-05-08 16:02] LABS: BUN/Creatinine Ratio 23 (6-26); Blood Urea Nitrogen 13 mg/dL (8-23); Calcium 9.7 mg/dL (8.6-10.3); Carbon Dioxide 32 mEq/L (23-29); Chloride 99 mEq/L (98-107); Glucose 128 mg/dL (70-105); Osmolality,Calculated 292 (280-300); Potassium 2.7 mEq/L (3.5-5.1); Sodium 140 mEq/L (136-145); Troponin I < 0.03 ng/mL (< 0.04); eGFR For African Americans > 60 (> 60); eGFR For Non-African Americans > 60 (> 60)
[2022-05-08 16:29] LABS: Bilirubin,Urine Negative (Negative); Blood,Urine Negative (Negative); Clarity,Urine Clear (Clear); Color,Urine Colorless (Yellow); Glucose,Urine (UA) Normal (Normal); Ketones,Urine Negative (Negative); Leukocyte Esterase,Urine Negative (Negative); Nitrite,Urine Negative (Negative); Protein,Urine Negative (Neg-Trace); Specific Gravity,Urine 1.009 (1.010-1.025); Urobilinogen,Urine Normal (Normal)
[2022-05-08] MEDS ORDERED: *HR* Heparin 5,000 UNIT/ML VIAL IVP ONE (17:35)
[2022-05-08] MEDS ORDERED: *HR* Heparin 5,000 UNIT/ML VIAL IVP PRN ×2 (17:35)
[2022-05-08] MEDS ORDERED: Potassium Effervescent 25 MEQ TABLET.EFF PO ONE (17:35)
[2022-05-08] MEDS ORDERED: Heparin 25,000UNIT/250ML 1/2NS 25,000 UNIT/250 ML IV.SOLN IVC SCH (17:45)
[2022-05-08] MEDS ORDERED: Melatonin 3 MG TABLET PO PRN (18:08)
[2022-05-08] MEDS ORDERED: Ondansetron 4 MG/2 ML VIAL IVP PRN (18:08)
[2022-05-08] MEDS ORDERED: Naloxone 0.4 MG/ML INJ IVP PRN (18:08)
[2022-05-08] MEDS ORDERED: Perflutren Lipid Microsphere 1.3 ML in 0.9 % Sodium Chloride 8.7 ML IVP PRN (18:10)
[2022-05-08 18:47] LABS: Heparin anti-factor XA UFH < 0.04 IU/mL (0.30-0.70); INR 1.1; Prothrombin Time 12.4 Seconds (9.4-12.1)
[2022-05-08] MEDS ORDERED: Gabapentin 300 MG CAPSULE PO PRN (21:29)
[2022-05-08] MEDS ORDERED: Albuterol 2.5 MG/3 ML NEBULIZER IH PRN (21:34)
[2022-05-08] MEDS: ALPRAZolam 0.5 MG TABLET PO SCH (21:56)
[2022-05-09 01:04] LABS: Basophils % 0.4 %; Eosinophils # 0.2 K/mcL (0.0-0.6); Eosinophils % 2.4 %; Hemoglobin 12.3 g/dL (11.5-15.4); Immature Granulocytes % 0.3 % (0-4); Lymphocytes % 26.2 %; Mean Corpuscular HGB Conc 34.2 g/dL (31.6-35.5); Mean Corpuscular Hemoglobin 30.6 pg (28.0-33.3); Mean Corpuscular Volume 89.6 fL (83.0-100.0); Mean Platelet Volume 11.3 fL (9.4-12.4); Monocytes # 0.8 K/mcL (0.0-1.3); Monocytes % 10.7 %; Neutrophils # 4.6 K/mcL (1.6-8.9); Platelet Count 215 K/mcL (140-400); Red Blood Count 4.02 M/mcL (3.82-4.97); Red Cell Distribution Width 13.5 % (11.5-14.5); White Blood Count 7.6 K/mcL (4.3-11.1)
[2022-05-09 01:20] LABS: BUN/Creatinine Ratio 25 (6-26); Blood Urea Nitrogen 12 mg/dL (8-23); Carbon Dioxide 32 mEq/L (23-29); Chloride 100 mEq/L (98-107); Glucose 114 mg/dL (70-105); Osmolality,Calculated 289 (280-300); Potassium 3.1 mEq/L (3.5-5.1); Sodium 139 mEq/L (136-145); eGFR For African Americans > 60 (> 60); eGFR For Non-African Americans > 60 (> 60)
[2022-05-09 02:52] VITALS: BP 132/72; PULSE 84; TEMP 97.2
[2022-05-09] MEDS: ALPRAZolam 0.5 MG TABLET PO SCH (08:44)
[2022-05-09] MEDS ORDERED: Apixaban 5 MG TABLET PO SCH (11:15)
[2022-05-09 12:00] VITALS: O2SAT 94
== END 2022-05-09 15:15 | disposition home or self-care (01) ==
LOC: EMEROOARM 14:53 → 3NENU 14:53 → SUATTDRO 18:33 → 3NENU 19:54
PROVIDERS: ADMIT Internal Medicine; ATTEND Internal Medicine

== ENCOUNTER 2022-05-26 10:49 | Observation (INO) ==
[2022-05-26] MEDS ORDERED: Iopamidol - 370 500 ML MLS IVP ONE (11:34)
[2022-05-26] MEDS ORDERED: DilTIAZem 50 MG/50 ML IV.SOLN IVC SCH (11:45)
[2022-05-26 12:04] LABS: Eosinophils # 0.3 K/mcL (0.0-0.6); Hematocrit 36.3 % (35.3-44.9); Mean Corpuscular HGB Conc 33.1 g/dL (31.6-35.5); Mean Corpuscular Hemoglobin 29.7 pg (28.0-33.3); Mean Corpuscular Volume 89.9 fL (83.0-100.0); Mean Platelet Volume 11.8 fL (9.4-12.4); Platelet Count 170 K/mcL (140-400); Red Blood Count 4.04 M/mcL (3.82-4.97); Red Cell Distribution Width 13.2 % (11.5-14.5); White Blood Count 13.4 K/mcL (4.3-11.1)
[2022-05-26 12:25] LABS: Basophils # 0.1 K/mcL (0.0-0.2); Lymphocytes # 3.6 K/mcL (0.6-4.6); Monocytes # 1.2 K/mcL (0.0-1.3); Neutrophils # 7.8 K/mcL (1.6-8.9); Platelet Estimate Normal (Normal)
[2022-05-26 12:27] LABS: Reactive Lymphocytes Present (Not Present)
[2022-05-26 12:35] LABS: BUN/Creatinine Ratio 13 (6-26); Blood Urea Nitrogen 7 mg/dL (8-23); Calcium 9.6 mg/dL (8.6-10.3); Carbon Dioxide 30 mEq/L (23-29); Chloride 100 mEq/L (98-107); Glucose 113 mg/dL (70-105); Osmolality,Calculated 287 (280-300); Sodium 139 mEq/L (136-145); Troponin I < 0.03 ng/mL (< 0.04); eGFR For African Americans > 60 (> 60); eGFR For Non-African Americans > 60 (> 60)
[2022-05-26] MEDS ORDERED: Potassium Effervescent 25 MEQ TABLET.EFF PO ONE (12:55)
[2022-05-26] MEDS ORDERED: *HR* Heparin 5,000 UNIT/ML VIAL IVP PRN ×2 (14:24)
[2022-05-26] MEDS ORDERED: *HR* Heparin 5,000 UNIT/ML VIAL IVP ONE (14:24)
[2022-05-26 15:10] LABS: INR 1.7; Prothrombin Time 18.7 Seconds (9.4-12.1)
[2022-05-26 15:13] LABS: Activated Partial Thrombo Time 50.7 Seconds (26.0-36.0)
[2022-05-26 15:17] LABS: Heparin anti-factor XA UFH > 2.00 IU/mL (0.30-0.70)
[2022-05-26] MEDS: Heparin 25,000UNIT/250ML 1/2NS 25,000 UNIT/250 ML IV.SOLN IVC SCH (15:26)
[2022-05-26] MEDS ORDERED: Acetaminophen 325 MG TABLET PO PRN (15:30)
[2022-05-26] MEDS ORDERED: Naloxone 0.4 MG/ML INJ IVP PRN (15:30)
[2022-05-26] MEDS ORDERED: Ondansetron ODT 4 MG TAB.RAPDIS SL PRN (15:30)
[2022-05-26] MEDS ORDERED: Melatonin 3 MG TABLET PO PRN (15:30)
[2022-05-26] MEDS ORDERED: ALPRAZolam 0.5 MG TABLET PO PRN (15:50)
[2022-05-26 17:10] LABS: Adenovirus Not Detected (Not Detect); Bordetella Pertussis Not Detected (Not Detect); Chlamydophila pneumoniae Not Detected (Not Detect); Coronavirus 229E Not Detected (Not Detect); Coronavirus HKU1 Not Detected (Not Detect); Coronavirus NL63 Not Detected (Not Detect); Coronavirus OC43 Not Detected (Not Detect); Human Metapneumovirus Not Detected (Not Detect); Human Rhinovirus/Enterovirus Not Detected (Not Detect); Influenza A Subtype 2009 H1 Not Detected (Not Detect); Influenza B Not Detected (Not Detect); Mycoplasma pneumoniae Not Detected (Not Detect); Parainfluenza Virus 1 Not Detected (Not Detect); Parainfluenza Virus 2 Not Detected (Not Detect); Parainfluenza Virus 3 Not Detected (Not Detect); Parainfluenza Virus 4 Not Detected (Not Detect); Respiratory Syncytial Virus Not Detected (Not Detect); SARS-CoV-2 Not Detected (Not Detect)
[2022-05-26] MEDS: predniSONE 20 MG TABLET PO SCH (20:41)
[2022-05-26] MEDS: Azithromycin 250 MG TABLET PO SCH (20:41)
[2022-05-26] MEDS ORDERED: *HR* Metoprolol 5 MG/5 ML VIAL IVP ONE (23:24)
[2022-05-27] MEDS: ALPRAZolam 1 MG TABLET PO PRN ×2 (01:21→21:01)
[2022-05-27 02:48] LABS: Hematocrit 34.9 % (35.3-44.9); Hemoglobin 11.8 g/dL (11.5-15.4); Mean Corpuscular HGB Conc 33.8 g/dL (31.6-35.5); Mean Corpuscular Volume 88.8 fL (83.0-100.0); Mean Platelet Volume 12.2 fL (9.4-12.4); Platelet Count 194 K/mcL (140-400); Red Blood Count 3.93 M/mcL (3.82-4.97); Red Cell Distribution Width 13.3 % (11.5-14.5)
[2022-05-27 02:58] LABS: White Blood Count 22.6 K/mcL (4.3-11.1)
[2022-05-27 03:11] LABS: BUN/Creatinine Ratio 13 (6-26); Blood Urea Nitrogen 7 mg/dL (8-23); Calcium 9.4 mg/dL (8.6-10.3); Carbon Dioxide 29 mEq/L (23-29); Chloride 99 mEq/L (98-107); Glucose 145 mg/dL (70-105); Magnesium 1.7 mg/dL (1.6-2.6); Osmolality,Calculated 287 (280-300); Phosphorous 3.4 mg/dL (2.7-4.5); Potassium 3.1 mEq/L (3.5-5.1); Sodium 138 mEq/L (136-145)
[2022-05-27] MEDS ORDERED: *HR* Metoprolol 5 MG/5 ML VIAL IVP ONE ×2 (03:31→23:16)
[2022-05-27 03:37] LABS: Lymphocytes # 3.2 K/mcL (0.6-4.6); Monocytes # 2.3 K/mcL (0.0-1.3); Neutrophils # 17.2 K/mcL (1.6-8.9)
[2022-05-27 03:38] LABS: Platelet Estimate Normal (Normal)
[2022-05-27] MEDS ORDERED: 0.9 % Sodium Chloride 250 ML IVC ONE (05:51)
[2022-05-27] MEDS ORDERED: Gabapentin 300 MG CAPSULE PO PRN (07:22)
[2022-05-27] MEDS: Azithromycin 250 MG TABLET PO SCH (07:52)
[2022-05-27] MEDS: predniSONE 20 MG TABLET PO SCH (07:52)
[2022-05-27] MEDS ORDERED: Magnesium Sulfate 1 GM/102 ML PIGGYBACK IVPB ONE (07:57)
[2022-05-27] MEDS: hydroCHLOROthiazide 25 MG TABLET PO SCH (08:10)
[2022-05-27] MEDS: Cefepime HCl 2,000 MG in 0.9 % Sodium Chloride 10 ML IVP SCH (16:01)
[2022-05-27] MEDS: Mirtazapine 15 MG TABLET PO SCH (21:00)
[2022-05-27] MEDS: Heparin 25,000UNIT/250ML 1/2NS 25,000 UNIT/250 ML IV.SOLN IVC SCH (22:45)
[2022-05-28] MEDS: Cefepime HCl 2,000 MG in 0.9 % Sodium Chloride 10 ML IVP SCH ×4 (00:39→23:53)
[2022-05-28 04:14] LABS: Basophils % 0.2 %; Eosinophils % 0.7 %
[2022-05-28 04:15] LABS: Basophils # 0.1 K/mcL (0.0-0.2); Eosinophils # 0.2 K/mcL (0.0-0.6); Hematocrit 28.6 % (35.3-44.9); Hemoglobin 9.2 g/dL (11.5-15.4); Immature Granulocytes % 15.5 % (0-4); Lymphocytes % 11.3 %; Mean Corpuscular HGB Conc 32.2 g/dL (31.6-35.5); Mean Corpuscular Hemoglobin 30.1 pg (28.0-33.3); Mean Corpuscular Volume 93.5 fL (83.0-100.0); Mean Platelet Volume 12.3 fL (9.4-12.4); Monocytes # 2.6 K/mcL (0.0-1.3); Monocytes % 10.1 %; Neutrophils # 16.2 K/mcL (1.6-8.9); Nucleated Red Blood Cells 0.2 /100 WBC (0); Platelet Count 178 K/mcL (140-400); Red Blood Count 3.06 M/mcL (3.82-4.97); Red Cell Distribution Width 13.9 % (11.5-14.5); Segmented Neutrophils % 62.2 %
[2022-05-28 04:22] LABS: Lymphocytes # 2.9 K/mcL (0.6-4.6)
[2022-05-28 04:34] LABS: BUN/Creatinine Ratio 20 (6-26); Blood Urea Nitrogen 12 mg/dL (8-23); Carbon Dioxide 31 mEq/L (23-29); Chloride 104 mEq/L (98-107); Glucose 105 mg/dL (70-105); Osmolality,Calculated 292 (280-300); Potassium 3.2 mEq/L (3.5-5.1); Sodium 141 mEq/L (136-145)
[2022-05-28] MEDS: Heparin 25,000UNIT/250ML 1/2NS 25,000 UNIT/250 ML IV.SOLN IVC SCH (06:41)
[2022-05-28] MEDS: predniSONE 20 MG TABLET PO SCH (08:14)
[2022-05-28] MEDS: Azithromycin 250 MG TABLET PO SCH (08:14)
[2022-05-28] MEDS: hydroCHLOROthiazide 25 MG TABLET PO SCH (08:15)
[2022-05-28] MEDS: *HR* Rivaroxaban 15 MG TABLET PO SCH ×2 (08:15→21:08)
[2022-05-28] MEDS: Ipratropium/Albuterol Neb 3 ML IH SCH ×3 (16:00→22:42)
[2022-05-28] MEDS: Mirtazapine 15 MG TABLET PO SCH (21:08)
[2022-05-29] MEDS: Ipratropium/Albuterol Neb 3 ML IH SCH ×2 (03:46→10:47)
[2022-05-29 09:34] LABS: Hematocrit 32.5 % (35.3-44.9); Hemoglobin 10.3 g/dL (11.5-15.4); Mean Corpuscular HGB Conc 31.7 g/dL (31.6-35.5); Mean Corpuscular Hemoglobin 29.7 pg (28.0-33.3); Mean Corpuscular Volume 93.7 fL (83.0-100.0); Mean Platelet Volume 11.9 fL (9.4-12.4); Nucleated Red Blood Cells 0.2 /100 WBC (0); Platelet Count 197 K/mcL (140-400); Red Blood Count 3.47 M/mcL (3.82-4.97); Red Cell Distribution Width 14.4 % (11.5-14.5)
[2022-05-29 09:57] LABS: BUN/Creatinine Ratio 25 (6-26); Blood Urea Nitrogen 15 mg/dL (8-23); Calcium 9.4 mg/dL (8.6-10.3); Carbon Dioxide 31 mEq/L (23-29); Chloride 105 mEq/L (98-107); Glucose 83 mg/dL (70-105); Osmolality,Calculated 294 (280-300); Potassium 3.5 mEq/L (3.5-5.1); Sodium 142 mEq/L (136-145)
[2022-05-29 10:13] LABS: Lymphocytes # 2.9 K/mcL (0.6-4.6); Monocytes # 2.5 K/mcL (0.0-1.3); Neutrophils # 13.9 K/mcL (1.6-8.9)
[2022-05-29] MEDS: *HR* Rivaroxaban 15 MG TABLET PO SCH (11:09)
[2022-05-29] MEDS: hydroCHLOROthiazide 25 MG TABLET PO SCH (11:09)
[2022-05-29] MEDS: predniSONE 20 MG TABLET PO SCH (11:09)
[2022-05-29] MEDS: Cefepime HCl 2,000 MG in 0.9 % Sodium Chloride 10 ML IVP SCH (11:09)
[2022-05-29] MEDS: Azithromycin 250 MG TABLET PO SCH (11:09)
[2022-05-29 11:35] VITALS: BP 150/78; PULSE 90; TEMP 97.5; O2SAT 98
== END 2022-05-29 14:00 | disposition home health service (06) ==
LOC: UNDODISOB → 3NENU 10:49 → EMEROOARM 10:49 → SUATTDRO 21:19 → 3NENU 22:39 → UNDODISOB 05-29 14:15
PROVIDERS: ADMIT Student in an Organized Health Care Education/Training Program; ATTEND Student in an Organized Health Care Education/Training Program

== ENCOUNTER 2022-06-17 00:20 | Observation (INO) ==
[2022-06-17] MEDS ORDERED: Iopamidol - 370 500 ML MLS IVP ONE (03:34)
[2022-06-17] MEDS ORDERED: 0.9 % Sodium Chloride 1,000 ML IV ONE (03:35)
[2022-06-17] MEDS ORDERED: Ondansetron 4 MG/2 ML VIAL IVP ONE (03:35)
[2022-06-17 04:16] LABS: Hemoglobin 11.2 g/dL (11.5-15.4); Mean Corpuscular HGB Conc 32.9 g/dL (31.6-35.5); Mean Corpuscular Hemoglobin 30.2 pg (28.0-33.3); Mean Corpuscular Volume 91.6 fL (83.0-100.0); Mean Platelet Volume 11.9 fL (9.4-12.4); Nucleated Red Blood Cells 0.1 /100 WBC (0); Platelet Count 198 K/mcL (140-400); Red Blood Count 3.71 M/mcL (3.82-4.97); Red Cell Distribution Width 14.4 % (11.5-14.5); White Blood Count 20.5 K/mcL (4.3-11.1)
[2022-06-17 04:33] LABS: Alanine Aminotransferase 15 Units/L (7-52); Albumin/Globulin Ratio 1.4 (1.1-2.2); Alkaline Phosphatase 90 Units/L (34-104); Amylase 20 Units/L (29-103); Aspartate Amino Transferase 13 Units/L (13-39); BUN/Creatinine Ratio 20 (6-26); Bilirubin,Total 0.4 mg/dL (0.3-1.0); Blood Urea Nitrogen 11 mg/dL (8-23); Calcium 9.8 mg/dL (8.6-10.3); Carbon Dioxide 27 mEq/L (23-29); Chloride 102 mEq/L (98-107); Globulin 2.8 g/dL (2.4-3.5); Glucose 127 mg/dL (70-105); Lipase 9 Units/L (11-82); Osmolality,Calculated 287 (280-300); Potassium 3.4 mEq/L (3.5-5.1); Sodium 138 mEq/L (136-145); Total Protein 6.8 g/dL (6.4-8.9)
[2022-06-17 04:53] LABS: Eosinophils # 0.8 K/mcL (0.0-0.6); Lymphocytes # 1.2 K/mcL (0.6-4.6); Monocytes # 1.6 K/mcL (0.0-1.3); Neutrophils # 16.8 K/mcL (1.6-8.9); Platelet Estimate Normal (Normal)
[2022-06-17 05:24] LABS: Bacteria,Urine Few per hpf (None-Few); Bilirubin,Urine Negative (Negative); Blood,Urine Negative (Negative); Clarity,Urine Turbid (Clear); Color,Urine Yellow (Yellow); Glucose,Urine (UA) Normal (Normal); Hyaline Casts,Urine Moderate per lpf (None Seen); Ketones,Urine Trace mg/dL (Negative); Leukocyte Esterase,Urine Moderate (Negative); Mucus,Urine Few per lpf (None-Few); Nitrite,Urine Negative (Negative); Protein,Urine Trace mg/dL (Neg-Trace); RBC,Urine 0-3 per hpf (0-3); Specific Gravity,Urine 1.019 (1.010-1.025); Urobilinogen,Urine Normal (Normal); WBC,Urine 30-50 per hpf (0-3)
[2022-06-17] MEDS ORDERED: Vancomycin 1,250 MG/262.5 ML IV.SOLN IVPB ONE (07:38)
[2022-06-17] MEDS ORDERED: Piperacillin/Tazobactam 3.375 GM in 0.9 % Sodium Chloride Mini Bag 100 ML IVPB ONE (07:39)
[2022-06-17] MEDS ORDERED: Ondansetron 4 MG/2 ML VIAL IVP PRN (08:27)
[2022-06-17] MEDS ORDERED: MOM Conc 10 ML UD.LIQ PO PRN (08:27)
[2022-06-17] MEDS ORDERED: *HR* HYDROcodone/Acet 5/325 mg TABLET PO PRN (08:27)
[2022-06-17] MEDS ORDERED: Melatonin 3 MG TABLET PO PRN (08:27)
[2022-06-17] MEDS ORDERED: Naloxone 0.4 MG/ML INJ IVP PRN (08:27)
[2022-06-17] MEDS ORDERED: Acetaminophen 325 MG TABLET PO PRN (08:27)
[2022-06-17] MEDS ORDERED: Ipratropium/Albuterol Neb 3 ML IH PRN (08:30)
[2022-06-17] MEDS: 0.9 % Sodium Chloride 1,000 ML IVC SCH ×2 (10:15→21:22)
[2022-06-17] MEDS ORDERED: Gabapentin 300 MG CAPSULE PO PRN (11:38)
[2022-06-17] MEDS ORDERED: ALPRAZolam 0.5 MG TABLET PO SCH ×2 (11:45→21:00)
[2022-06-17 12:04] LABS: Adenovirus Not Detected (Not Detect); Bordetella Pertussis Not Detected (Not Detect); Chlamydophila pneumoniae Not Detected (Not Detect); Coronavirus 229E Not Detected (Not Detect); Coronavirus HKU1 Not Detected (Not Detect); Coronavirus NL63 Not Detected (Not Detect); Coronavirus OC43 Not Detected (Not Detect); Human Metapneumovirus Not Detected (Not Detect); Human Rhinovirus/Enterovirus Not Detected (Not Detect); Influenza A Subtype 2009 H1 Not Detected (Not Detect); Influenza B Not Detected (Not Detect); Mycoplasma pneumoniae Not Detected (Not Detect); Parainfluenza Virus 1 Not Detected (Not Detect); Parainfluenza Virus 2 Not Detected (Not Detect); Parainfluenza Virus 3 Not Detected (Not Detect); Parainfluenza Virus 4 Not Detected (Not Detect); Respiratory Syncytial Virus Not Detected (Not Detect); SARS-CoV-2 Not Detected (Not Detect)
[2022-06-17] MEDS: *HR* Rivaroxaban 15 MG TABLET PO SCH ×2 (12:29→21:37)
[2022-06-17] MEDS ORDERED: hydrOXYzine pamoate 25 MG CAPSULE PO PRN (12:44)
[2022-06-17] MEDS: Piperacillin/Tazobactam 3.375 GM in 0.9 % Sodium Chloride Mini Bag 100 ML IVPB SCH (15:50)
[2022-06-18] MEDS: Piperacillin/Tazobactam 3.375 GM in 0.9 % Sodium Chloride Mini Bag 100 ML IVPB SCH ×2 (00:46→08:29)
[2022-06-18 03:03] LABS: Hematocrit 26.2 % (35.3-44.9); Mean Corpuscular HGB Conc 32.1 g/dL (31.6-35.5); Mean Corpuscular Hemoglobin 30.1 pg (28.0-33.3); Mean Corpuscular Volume 93.9 fL (83.0-100.0); Mean Platelet Volume 11.8 fL (9.4-12.4); Nucleated Red Blood Cells 0.1 /100 WBC (0); Platelet Count 162 K/mcL (140-400); Red Blood Count 2.79 M/mcL (3.82-4.97); Red Cell Distribution Width 14.8 % (11.5-14.5); White Blood Count 17.8 K/mcL (4.3-11.1)
[2022-06-18 03:12] LABS: Hemoglobin 8.4 g/dL (11.5-15.4)
[2022-06-18 03:22] LABS: BUN/Creatinine Ratio 16 (6-26); Blood Urea Nitrogen 9 mg/dL (8-23); Calcium 8.4 mg/dL (8.6-10.3); Carbon Dioxide 25 mEq/L (23-29); Chloride 109 mEq/L (98-107); Glucose 89 mg/dL (70-105); Magnesium 1.8 mg/dL (1.6-2.6); Osmolality,Calculated 288 (280-300); Phosphorous 4.1 mg/dL (2.7-4.5); Potassium 3.3 mEq/L (3.5-5.1); Sodium 140 mEq/L (136-145)
[2022-06-18 03:53] LABS: Eosinophils # 1.1 K/mcL (0.0-0.6); Lymphocytes # 1.8 K/mcL (0.6-4.6); Monocytes # 2.5 K/mcL (0.0-1.3); Neutrophils # 12.5 K/mcL (1.6-8.9)
[2022-06-18 03:54] LABS: Platelet Estimate Normal (Normal)
[2022-06-18 07:02] VITALS: O2SAT 94
[2022-06-18] MEDS: *HR* Rivaroxaban 15 MG TABLET PO SCH (08:31)
[2022-06-18] MEDS ORDERED: Patient Taking Own Medication 1 EACH TP SCH (09:00)
[2022-06-18] MEDS ORDERED: *HR* Acetylcysteine 20% 600 MG/3 ML ORAL SYRINGE PO SCH (09:00)
[2022-06-18 09:14] VITALS: BP 138/81; PULSE 93; TEMP 98.6
[2022-06-18] MEDS ORDERED: ALPRAZolam 0.25 MG TABLET PO SCH (12:00)
== END 2022-06-18 12:47 | disposition home or self-care (01) ==
LOC: EMEROOARM 00:20 → 2ANU 00:20 → SUATTDRO 08:35 → 2ANU 09:32
PROVIDERS: ADMIT Internal Medicine; ATTEND Internal Medicine